=== PATIENT | female | born 1935 | race Caucasian/White ===

== ENCOUNTER → 2017-05-31 | Outpatient (CLI) | payer MEDICARE, BC ==
[2017-05-31 07:53] LABS: Basophils # (A) 0.1 k/uL (0-0.2); Basophils % (A) 2 %; Eosinophils # (A) 0.2 k/uL (0-0.7); Eosinophils % (A) 4 %; HCT 44.5 % (34.0-46.0); HDW 2.24; HGB 14.5 gm/dL (11.4-16.0); Luc # (Auto) 0.16; Luc % (Auto) 3; Lymphocytes # (A) 1.7 k/uL (1.0-4.8); Lymphocytes % (A) 31 %; MCH 29.7 pg (25.0-35.0); MCHC 32.5 g/dL (31.0-37.0); MCV 91.4 fL (80.0-100.0); Mean Platelet Volume 7.2; Monocytes # (A) 0.6 k/uL (0-1.0); Monocytes % (A) 11 %; Neutrophils # (A) 2.7 k/uL (1.3-7.7); Neutrophils % (A) 50 %; RBC 4.86 m/uL (3.80-5.40); RDW 14.6 % (11.5-15.5); WBC 5.4 k/uL (3.8-10.6); WBC (Perox) 5.42
[2017-05-31 08:05] LABS: ALT 24 U/L (9-52); AST 27 U/L (14-36); Alkaline Phosphatase 105 U/L (38-126); Anion Gap 8 mmol/L; Blood Urea Nitrogen 30 mg/dL (7-17); Calcium 9.7 mg/dL (8.4-10.2); Carbon Dioxide 28 mmol/L (22-30); Chloride 100 mmol/L (98-107); Cholesterol 202 mg/dL (<200); Glucose 75 mg/dL (74-99); HDL Cholesterol 58 mg/dL (40-60); Non-African American GFR(MDRD) 53 (>60 ml/min/1.73 sqM); Sodium 136 mmol/L (137-145); Total Bilirubin 0.6 mg/dL (0.2-1.3); Total Protein 6.9 g/dL (6.3-8.2)
== END | disposition home or self-care (01) ==
LOC: LABWHC1 07:19
PROVIDERS: ATTEND Internal Medicine
DX: Z00.00 Encounter for general adult medical examination without abnormal findings (principal); E03.9 Hypothyroidism, unspecified; I10 Essential (primary) hypertension; I45.81 Long QT syndrome
CPT/HCPCS: 36415; 80053; 80061; 84439; 84443; 85025

== ENCOUNTER 2018-05-15 21:10 | Emergency (ER) | payer MEDICARE, BC ==
[2018-05-15 21:33] VITALS: PULSE 54; RESP 18; TEMP 97.1
[2018-05-15] MEDS ORDERED: DIPH,PERTUS(ACELL)TETVAC-LF 0.5 ML VIAL IM ONE (21:42)
--- NOTE | 2018-05-15 21:43 | ED ---
Trauma HPI - General Stated Complaint: fall/ hand injury Time Seen by Provider: 05/15/18 21:29 - History of Present Illness Initial Comments: Rachel is an 83 yo female who presents to the ED today via private vehicle for evaluation of facial and hand trauma after a fall. Patient reports she was walking on the sidewalk when the angle of the curb changed and she lost her balance falling forward. Patient reports she put out both of her hands which broke her fall however she did strike her face on the ground which resulted in a laceration to her upper left lip as well as damage to her dentures. Patient was able to stand and ambulate to the car with her 's assistance he then drove her to the ER for evaluation. Patient complains only of bilateral hand pain, she denies any loss of consciousness, headache, vision changes, numbness or tingling in the arms or legs or any weakness. - Related Data Home Medications Medication Instructions Recorded Confirmed Levothyroxine Sodium [Synthroid] 100 mcg PO DAILY 01/10/15 05/15/18 Vit A/Vit C/Vit E/Zinc/Copper 2 cap PO BID 01/10/15 05/15/18 [ICAPS SOFTGEL] Apixaban [Eliquis] 2.5 mg PO BID 05/15/18 05/15/18 Hydrochlorothiazide 25 mg PO DAILY 05/15/18 05/15/18 Lisinopril [Zestril] 20 mg PO DAILY 05/15/18 05/15/18 Allergies Allergy/AdvReac Type Severity Reaction Status Date / Time No Known Allergies Allergy Verified 05/15/18 22:20 Review of Systems ROS Statement: Those systems with pertinent positive or pertinent negative responses have been documented in the HPI. ROS Other: All systems not noted in ROS Statement are negative. Past Medical History Past Medical History: Hypertension, Thyroid Disorder History of Any Multi-Drug Resistant Organisms: None Reported Past Surgical History: Bladder Surgery, Hernia Repair, Hysterectomy Additional Past Surgical History / Comment(s): bladder suspension X2 Past Anesthesia/Blood Transfusion Reactions: No Reported Reaction Past Psychological History: No Psychological Hx Reported Smoking Status: Never smoker Past Alcohol Use History: None Reported Past Drug Use History: None Reported - Past Family History Father History Unknown: Yes Additional Family Medical History / Comment(s): at 82 Mother Family Medical History: Diabetes Mellitus Additional Family Medical History / Comment(s): kidney failure General Exam - General Exam Comments Initial Comments: GENERAL: Patient is well-developed and well-nourished. Patient is nontoxic and well-hydrated and is in mild distress HENT: Normocephalic Superficial approximately 2 cm Laceration over left upper lip. Upper plate of the dentures were examined and tooth number 10 appears to be chipped Neck is soft and supple. No midline tenderness No significant lymphadenopathy is noted. Oropharynx is clear. Moist mucous membranes. EYES: The sclera were anicteric and conjunctiva were pink and moist. Extraocular movements were intact and pupils were equal round and reactive to light. Eyelids were unremarkable. PULMONARY: Unlabored respirations. Good breath sounds bilaterally. No audible rales rhonchi or wheezing was noted. CARDIOVASCULAR: There is a regular rate and rhythm without any murmurs gallops or rubs. 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 SKIN: Abrasion to bilateral palms of hands, Skin tear to right thenar emenence NEUROLOGIC: Patient is alert and oriented x3. Cranial nerves II through XII are grossly intact. Motor and sensory are also intact. Normal speech, volume and content. Symmetrical smile. MUSCULOSKELETAL: Normal extremities with adequate strength and full range of motion. No lower extremity swelling or edema. No calf tenderness. 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 Limitations: no limitations Course Vital Signs 05/15/18 21:26 Temperature 97.1 F L Pulse Rate 54 L Respiratory 18 Rate Blood Pressure 96/58 O2 Sat by Pulse 94 L Oximetry Procedures - Laceration Laceration #1 Consent Obtained: verbal consent Time Out Performed: Yes Indication: laceration Site: hand Size (cm): 5 Description: flap Depth: simple, single layer Anesthetic Used: lidocaine 1% Anesthesia Technique: local infiltration Pre-repair: wound explored, irrigated extensively, deep structures intact Type of Sutures: nylon Size of Sutures: 5-0 Number of Sutures: 5 Technique: simple, interrupted Patient Tolerated Procedure: well, no complications Additional Comments: V shaped flap was tacked down and loosely approximated to serve as a biologic dressing. - Nerve Block Consent Obtained: verbal consent Time Out Performed: Yes Local Anesthetic Used: Lidocaine 1% Side: left Nerve Blocks: digital Procedure Successful: Yes Complications: none Patient Tolerated Procedure: well - Orthopedic Joint Reduction Joint #1 Consent Obtained: verbal consent Time Out Performed: Yes Side: left Joint Reduction Location: finger Analgesia: digital block Local Anesthetic Used: Lidocaine 1% Amount of Anesthetic Used (mLs): 1 Technique Used: direct manipulation Post-Reduction Neuro Exam: intact Post-Reduction Vascular Exam: intact Post Reduction X-Ray Obtained: No Splint Applied: Yes Patient Tolerated Procedure: well, no complications - Orthopedic Splinting/Casting Injury #1 Side: left Upper Extremity Injury Location: hand Upper Extremity Immobilizer: ulnar gutter Lower Extremity Immobilizer: synthetic pre-padded splint Medical Decision Making - Medical Decision Making LEVEL 2 TRAUMA Patient seen and evaluated per ATLS guidelines ABC intact secondary survey reveals laceration to upper lip, damage to denture, abrasion and skin tear to bilateral palms and decreased ROM of fingers due to pain Patient unable to remove wedding ring secondary to pain Xrays reveal acute fracture of left ring and 5th finger - discussed with patient who is agreeable to having rings cut off CT face with no injury noted CT head Labs with no acute abnormalities - chronic kidney disease noted Left fifth finger PIP joint appeared dislocated on physical exam, a digital block was placed in the finger was reduced with good range of motion and pain only at the fracture site. The left hand was placed in an ulnar gutter splint which extended to the fingertips to immobilize the fingers Right hand skin flap was anesthetized and irrigated, skin flap was tacked down with 5 simple interrupted sutures Patient remains awake alert oriented, no signs of concussion. At this time the patient is comfortable with plan for discharge home. will remain with the patient for further observation. Return parameters were discussed patient was discharged home in stable condition. - Lab Data Result diagrams: 05/15/18 21:45 05/15/18 21:45 Lab Results 05/15/18 05/15/18 05/15/18 Range/Units 21:45 21:45 21:45 WBC 12.5 H (3.8-10.6) k/uL RBC 4.83 (3.80-5.40) m/uL Hgb 14.2 (11.4-16.0) gm/dL Hct 42.6 (34.0-46.0) % MCV 88.3 (80.0-100.0) fL MCH 29.4 (25.0-35.0) pg MCHC 33.3 (31.0-37.0) g/dL RDW 13.7 (11.5-15.5) % Plt Count 398 (150-450) k/uL Neutrophils % 56 % Lymphocytes % 33 % Monocytes % 7 % Eosinophils % 3 % Basophils % 1 % Neutrophils # 7.0 (1.3-7.7) k/uL Lymphocytes # 4.1 (1.0-4.8) k/uL Monocytes # 0.8 (0-1.0) k/uL Eosinophils # 0.3 (0-0.7) k/uL Basophils # 0.1 (0-0.2) k/uL PT (9.0-12.0) sec INR (<1.2) APTT (22.0-30.0) sec Sodium 135 L (137-145) mmol/L Potassium 4.0 (3.5-5.1) mmol/L Chloride 100 (98-107) mmol/L Carbon Dioxide 25 (22-30) mmol/L Anion Gap 10 mmol/L BUN 39 H (7-17) mg/dL Creatinine 1.18 H (0.52-1.04) mg/dL Est GFR (CKD-EPI)AfAm 49 (>60 ml/min/1.73 sqM) Est GFR (CKD-EPI)NonAf 42 (>60 ml/min/1.73 sqM) Glucose 182 H (74-99) mg/dL POC Glucose (mg/dL) (75-99) mg/dL POC Glu Grain Broker ID Plasma Lactic Acid Suresh (0.7-2.0) mmol/L Calcium 9.4 (8.4-10.2) mg/dL Total Bilirubin 0.2 (0.2-1.3) mg/dL AST 25 (14-36) U/L ALT 23 (9-52) U/L Alkaline Phosphatase 100 (38-126) U/L Total Creatine Kinase 128 (30-135) U/L CK-MB (CK-2) 3.1 H (0.0-2.4) ng/mL CK-MB (CK-2) Rel Index 2.4 Troponin I <0.012 (0.000-0.034) ng/mL Total Protein 6.2 L (6.3-8.2) g/dL Albumin 3.6 (3.5-5.0) g/dL Amylase 86 (30-110) U/L Lipase 181 (23-300) U/L Serum Alcohol <10 mg/dL 05/15/18 05/15/18 05/15/18 Range/Units 21:45 21:45 21:52 WBC (3.8-10.6) k/uL RBC (3.80-5.40) m/uL Hgb (11.4-16.0) gm/dL Hct (34.0-46.0) % MCV (80.0-100.0) fL MCH (25.0-35.0) pg MCHC (31.0-37.0) g/dL RDW (11.5-15.5) % Plt Count (150-450) k/uL Neutrophils % % Lymphocytes % % Monocytes % % Eosinophils % % Basophils % % Neutrophils # (1.3-7.7) k/uL Lymphocytes # (1.0-4.8) k/uL Monocytes # (0-1.0) k/uL Eosinophils # (0-0.7) k/uL Basophils # (0-0.2) k/uL PT 10.0 (9.0-12.0) sec INR 1.0 (<1.2) APTT 22.2 (22.0-30.0) sec Sodium (137-145) mmol/L Potassium (3.5-5.1) mmol/L Chloride (98-107) mmol/L Carbon Dioxide (22-30) mmol/L Anion Gap mmol/L BUN (7-17) mg/dL Creatinine (0.52-1.04) mg/dL Est GFR (CKD-EPI)AfAm (>60 ml/min/1.73 sqM) Est GFR (CKD-EPI)NonAf (>60 ml/min/1.73 sqM) Glucose (74-99) mg/dL POC Glucose (mg/dL) 177 H (75-99) mg/dL POC Glu Grain Broker ID Ximena Rasheed Plasma Lactic Acid Suresh 1.8 (0.7-2.0) mmol/L Calcium (8.4-10.2) mg/dL Total Bilirubin (0.2-1.3) mg/dL AST (14-36) U/L ALT (9-52) U/L Alkaline Phosphatase (38-126) U/L Total Creatine Kinase (30-135) U/L CK-MB (CK-2) (0.0-2.4) ng/mL CK-MB (CK-2) Rel Index Troponin I (0.000-0.034) ng/mL Total Protein (6.3-8.2) g/dL Albumin (3.5-5.0) g/dL Amylase (30-110) U/L Lipase (23-300) U/L Serum Alcohol mg/dL - EKG Data -: EKG Interpreted by Ar EKG Comments: EKG obtained at 9:44 PM, rate is 58, rhythm is a ventricular paced rhythm with prolonged conduction. MD is 254, QRS is 186, QTC is 494. No acute ST elevations or depressions. No evidence of acute ischemia or infarction. Disposition Clinical Impression: Fall, Finger fracture, left, Dislocation of PIP joint of finger, Avulsion of skin of hand Disposition: HOME SELF-CARE Condition: Good Instructions: Fall Prevention for Older Adults (ED) Is patient prescribed a controlled substance at d/c from ED?: No Referrals: Oren Owusu MD [Primary Care Provider] - 1-2 days
[2018-05-15 21:44] VITALS: BP 96/58
[2018-05-15 22:01] LABS: Basophils # (A) 0.1 k/uL (0-0.2); Basophils % (A) 1 %; Eosinophils # (A) 0.3 k/uL (0-0.7); Eosinophils % (A) 3 %; HCT 42.6 % (34.0-46.0); HGB 14.2 gm/dL (11.4-16.0); Lymphocytes # (A) 4.1 k/uL (1.0-4.8); Lymphocytes % (A) 33 %; MCH 29.4 pg (25.0-35.0); MCHC 33.3 g/dL (31.0-37.0); MCV 88.3 fL (80.0-100.0); Mean Platelet Volume 6.9; Monocytes # (A) 0.8 k/uL (0-1.0); Monocytes % (A) 7 %; Neutrophils % (A) 56 %; Platelet Count 398 k/uL (150-450); RBC 4.83 m/uL (3.80-5.40); RDW 13.7 % (11.5-15.5); WBC 12.5 k/uL (3.8-10.6)
--- NOTE | 2018-05-15 22:04 | XR ---
EXAMINATION TYPE: XR chest 1V portable DATE OF EXAM: 05/15/2018 COMPARISON: 01/12/2015 HISTORY: Fall tonight. Hypertension. Chest pain TECHNIQUE: Single frontal view of the chest is obtained. FINDINGS: There is small linear density at the left lung base. Lungs are clear of consolidation. The re is no heart failure. Heart size is normal. There are chest leads. There is left axillary pacemaker with the lead tips in the right ventricle. IMPRESSION: Subsegmental atelectasis at the left lung base is new compared to old exam. No heart josé antonio lure.
--- NOTE | 2018-05-15 22:06 | XR ---
EXAMINATION TYPE: XR pelvis AP view DATE OF EXAM: 05/15/2018 COMPARISON: NONE HISTORY: Fall. Pain. TECHNIQUE: Single view FINDINGS: Pelvic ring is intact. Proximal femurs and hip joints are intact. There is no evidence of a fracture. Sacroiliac joints are intact. IMPRESSION: No acute abnormality of the pelvis.
[2018-05-15 22:07] LABS: ALT 23 U/L (9-52); AST 25 U/L (14-36); Albumin 3.6 g/dL (3.5-5.0); Alcohol <10 mg/dL; Alkaline Phosphatase 100 U/L (38-126); Amylase 86 U/L (30-110); Anion Gap 10 mmol/L; Blood Urea Nitrogen 39 mg/dL (7-17); Calcium 9.4 mg/dL (8.4-10.2); Carbon Dioxide 25 mmol/L (22-30); Chloride 100 mmol/L (98-107); Glucose 182 mg/dL (74-99); Lipase 181 U/L (23-300); Sodium 135 mmol/L (137-145); Total Bilirubin 0.2 mg/dL (0.2-1.3); Total Protein 6.2 g/dL (6.3-8.2)
[2018-05-15 22:09] LABS: Creatine Kinase 128 U/L (30-135)
--- NOTE | 2018-05-15 22:09 | XR ---
EXAMINATION TYPE: XR hand complete bilateral DATE OF EXAM: 05/15/2018 COMPARISON: NONE HISTORY: Fall. Pain. TECHNIQUE: 3 views of each hand. FINDINGS: There is some narrowing and spurring at the first carpometacarpal joints bilaterally. There is impacted nondisplaced fracture across the base of the proximal phalanx of the little finger and r ing finger of the left hand. There is no dislocation. Bones of the right hand appear intact. There ar e no erosions. There is narrowing of the left second MP joint space. IMPRESSION: Acute fractures of the left hand involving the ring finger and little finger.
[2018-05-15 22:12] LABS: Partial Thromboplastin Time 22.2 sec (22.0-30.0)
[2018-05-15 22:23] LABS: Creatine Kinase MB 3.1 ng/mL (0.0-2.4); Troponin I <0.012 ng/mL (0.000-0.034)
--- NOTE | 2018-05-15 22:27 | CT ---
EXAMINATION TYPE: CT facial bones wo con DATE OF EXAM: 05/15/2018 COMPARISON: None HISTORY: pt fall Pain CT DLP: 1063.1 combined mGycm Automated exposure control for dose reduction was used. TECHNIQUE: CT scan of the sinuses is performed without contrast, axial images are obtained, coronal r eformatted images are also reviewed. FINDINGS: There is mucosal thickening in the left maxillary sinus. I see no blowout fracture. There i s mild mucosal thickening right maxillary sinus. The mandibular ring is intact. Temporomandibular teresa nts are intact. Zygomatic arches are intact. Nasal bone appears normal. There is no evidence of retro -orbital mass. There is mild mucosal thickening left side ethmoid air cells. The maxilla appears inta ct.. IMPRESSION: There is maxillary and ethmoid sinusitis. No fracture seen.
--- NOTE | 2018-05-15 23:00 | CT ---
EXAMINATION TYPE: CT brain siva allen DATE OF EXAM: 05/15/2018 COMPARISON: None HISTORY: Pt fall headache. Neck pain CT DLP: 1063.1 combined mGycm Automated exposure control for dose reduction was used. TECHNIQUE: CT scan of the head and cervical spine are performed without contrast. FINDINGS: There is mucosal thickening in the maxillary and ethmoid sinuses. There is mild cerebral cortical atrophy. There is no mass effect nor midline shift. There is no sign of intracranial hemorrh age. The calvarium is intact. The cervical vertebra have normal alignment. There is mild narrowing of the disc spaces at C4-5 C5-6 with spur formation. Posterior elements are intact. Facet joints are intact. There is some scarring a t the lung apices with pleural thickening. IMPRESSION: Cerebral atrophy. No acute intracranial abnormality. Mild spondylotic changes in the cervical spine. No fracture.
[2018-05-15] MEDS ORDERED: LIDOCAINE 1% INJ 10MG/ML (20 ML MDV) SQ ONE (23:24)
[2018-05-16 01:19] LABS: Glucose,Whole Blood 177 mg/dL (75-99)
== END 2018-05-16 01:10 | disposition home or self-care (01) ==
LOC: EC 21:10
DX: S62.647A Nondisplaced fracture of proximal phalanx of left little finger, initial encounter for closed fracture (principal); S62.645A Nondisplaced fracture of proximal phalanx of left ring finger, initial encounter for closed fracture; S61.411A Laceration without foreign body of right hand, initial encounter; S01.511A Laceration without foreign body of lip, initial encounter; I12.9 Hypertensive chronic kidney disease with stage 1 through stage 4 chronic kidney disease, or unspecified chronic kidney disease; N18.9 Chronic kidney disease, unspecified; E07.9 Disorder of thyroid, unspecified; Z23 Encounter for immunization; Z95.0 Presence of cardiac pacemaker; Z79.01 Long term (current) use of anticoagulants; Z79.899 Other long term (current) drug therapy; W10.1XXA Fall (on)(from) sidewalk curb, initial encounter; Y93.01 Activity, walking, marching and hiking; Y92.480 Sidewalk as the place of occurrence of the external cause
CPT/HCPCS: 36415; 80053; 82150; 82550; 82553; 83605; 83690; 84484; 85025; 85610; 85730; 73130; 72170; 71045; 72125; 70486; 70450; 99284; 26725; 12002; 96360; 96361 ×2; 90471; G0480; 80320

== ENCOUNTER → 2018-06-06 | Outpatient (CLI) | payer MEDICARE, BC ==
[2018-06-06 08:34] LABS: Basophils % (A) 1 %; Eosinophils # (A) 0.3 k/uL (0-0.7); Eosinophils % (A) 7 %; HCT 43.4 % (34.0-46.0); HGB 14.1 gm/dL (11.4-16.0); Lymphocytes # (A) 1.2 k/uL (1.0-4.8); Lymphocytes % (A) 24 %; MCHC 32.5 g/dL (31.0-37.0); MCV 89.3 fL (80.0-100.0); Mean Platelet Volume 6.5; Monocytes # (A) 0.4 k/uL (0-1.0); Monocytes % (A) 8 %; Neutrophils # (A) 2.9 k/uL (1.3-7.7); Neutrophils % (A) 57 %; Platelet Count 328 k/uL (150-450); RBC 4.87 m/uL (3.80-5.40); WBC 5.1 k/uL (3.8-10.6)
[2018-06-06 15:58] LABS: Albumin 3.9 g/dL (3.80-4.90); Albumin/Globulin Ratio 2.29 (1.20-2.10); Anion Gap 7.2 mmol/L (4.00-12.00); Carbon Dioxide 25.8 mmol/L (21.6-31.8); Globulin 1.7 g/dL (1.6-3.3); LDL Cholesterol,Calculated 97.6 mg/dL (0.0-131.0); Potassium 4.1 mmol/L (3.5-5.5); Total Bilirubin 0.6 mg/dL (0.3-1.2); Total Protein 5.6 g/dL (6.2-8.2); VLDL Calculation 21.4 mg/dL (5.00-40.00)
[2018-06-06 16:07] LABS: T4, Free (Free Thyroxine) 1.3 ng/dL (0.80-1.80)
== END | disposition home or self-care (01) ==
LOC: LABWHC1 08:03
PROVIDERS: ATTEND Internal Medicine
DX: Z00.00 Encounter for general adult medical examination without abnormal findings (principal); E03.9 Hypothyroidism, unspecified; I10 Essential (primary) hypertension; Q78.2 Osteopetrosis
CPT/HCPCS: 36415; 80053; 80061; 82306; 84439; 84443; 85025

== ENCOUNTER → 2019-05-31 | Outpatient (CLI) | payer MEDICARE, BC ==
[2019-05-31 08:26] LABS: Basophils # (A) 0.1 k/uL (0-0.2); Basophils % (A) 1 %; Eosinophils # (A) 0.3 k/uL (0-0.7); Eosinophils % (A) 4 %; HCT 42.6 % (34.0-46.0); HGB 14.4 gm/dL (11.4-16.0); Lymphocytes % (A) 31 %; MCH 30.5 pg (25.0-35.0); MCHC 33.9 g/dL (31.0-37.0); Mean Platelet Volume 7.2; Monocytes # (A) 0.6 k/uL (0-1.0); Monocytes % (A) 9 %; Neutrophils # (A) 3.4 k/uL (1.3-7.7); Neutrophils % (A) 52 %; Platelet Count 315 k/uL (150-450); RBC 4.73 m/uL (3.80-5.40); RDW 13.7 % (11.5-15.5); WBC 6.6 k/uL (3.8-10.6)
[2019-05-31 16:26] LABS: T4, Free (Free Thyroxine) 1.7 ng/dL (0.80-1.80)
[2019-05-31 17:02] LABS: African American GFR (CKD) 59.1 (60.0-200.0); Albumin 4.2 g/dL (3.80-4.90); Albumin/Globulin Ratio 2.33 (1.60-3.17); Anion Gap 10.1 mmol/L (4.00-12.00); Calcium 9.5 mg/dL (8.7-10.3); Carbon Dioxide 26.9 mmol/L (21.6-31.8); Chol/HDL Ratio 3.03; Globulin 1.8 g/dL (1.6-3.3); Total Bilirubin 0.7 mg/dL (0.2-1.2)
== END | disposition home or self-care (01) ==
LOC: LABWHC1 07:43
PROVIDERS: ATTEND Internal Medicine
DX: E03.9 Hypothyroidism, unspecified (principal); E55.9 Vitamin D deficiency, unspecified; I10 Essential (primary) hypertension
CPT/HCPCS: 36415; 80053; 80061; 82306; 84439; 84443; 84481; 85025

== ENCOUNTER → 2020-06-19 | Outpatient (CLI) | payer MEDICARE, BC ==
[2020-06-19 08:41] LABS: Appearance,Urine Clear (Clear); Bilirubin,Urine Negative (Negative); Blood,Urine Negative (Negative); Color,Urine Light Yellow; Glucose,Urine (UA) Negative (Negative); Ketones,Urine Negative (Negative); Leukocyte Esterase,Urine Trace (Negative); Mucus,Urine Rare /hpf; Nitrite,Urine Negative (Negative); Protein,Urine Negative (Negative); RBC,Urine <1 /hpf (0-5); Specific Gravity,Urine 1.009 (1.001-1.035); Squamous Epithelial Cell,Urine 1 /hpf (0-4); Urobilinogen,Urine <2.0 mg/dL (<2.0); WBC,Urine 2 /hpf (0-5)
[2020-06-19 08:42] LABS: Basophils # (A) 0.1 k/uL (0-0.2); Basophils % (A) 1 %; Eosinophils # (A) 0.2 k/uL (0-0.7); Eosinophils % (A) 3 %; HGB 15.6 gm/dL (11.4-16.0); Lymphocytes # (A) 1.6 k/uL (1.0-4.8); Lymphocytes % (A) 30 %; MCH 29.7 pg (25.0-35.0); MCHC 32.4 g/dL (31.0-37.0); MCV 91.7 fL (80.0-100.0); Mean Platelet Volume 7.1; Monocytes # (A) 0.6 k/uL (0-1.0); Monocytes % (A) 11 %; Neutrophils # (A) 2.8 k/uL (1.3-7.7); Neutrophils % (A) 51 %; Platelet Count 296 k/uL (150-450); RBC 5.24 m/uL (3.80-5.40); RDW 14.2 % (11.5-15.5); WBC 5.5 k/uL (3.8-10.6)
[2020-06-19 16:38] LABS: African American GFR (CKD) 52.3 (60.0-200.0); Albumin 4.2 g/dL (3.80-4.90); Albumin/Globulin Ratio 2.1 (1.60-3.17); BUN/Creat Ratio 21.82 Ratio (12.00-20.00); Calcium 9.3 mg/dL (8.7-10.3); Chol/HDL Ratio 3.17; LDL Cholesterol,Calculated 121.4 mg/dL (0.0-131.0); Non-African American GFR(CKD) 45.1 (60.0-200.0); Potassium 4.4 mmol/L (3.5-5.5); Total Bilirubin 0.6 mg/dL (0.3-1.2); Total Protein 6.2 g/dL (6.2-8.2); VLDL Calculation 19.6 mg/dL (5.00-40.00)
[2020-06-19 16:46] LABS: T4, Free (Free Thyroxine) 1.5 ng/dL (0.80-1.80)
== END | disposition home or self-care (01) ==
LOC: LABWHC1 07:42
PROVIDERS: ATTEND Internal Medicine
DX: I10 Essential (primary) hypertension (principal); E03.9 Hypothyroidism, unspecified; E55.9 Vitamin D deficiency, unspecified
CPT/HCPCS: 36415; 80053; 80061; 81001; 82306; 84439; 84443; 84481; 85025